=== PATIENT | female | born 1990 | race Caucasian/White ===

== ENCOUNTER 2021-02-04 07:11 | Observation (INO) | payer MEDICAID ==
[2021-02-04] MEDS ORDERED: Misoprostol 50 MCG (1/2 of 100 MCG) Tab VAG ONE ×4 (07:22→11:50)
[2021-02-04] MEDS ORDERED: Aluminum Hydroxide/Magnesium Hydroxide/Simethicone Susp 30 ML Cup PO PRN (08:26)
--- NOTE | 2021-02-04 08:37 | PCM.LDHP ---
L&D History of Present Illness - General Date of Service: 02/04/21 (cerical ripening) Admit Problem/Dx: Patient Status Order with Admit Dx/Problem 02/04/21 08:26 Patient Status [ADT] Routine Admission Diagnosis/Problem Admission Diagnosis/Problem High risk Source of Information: Patient History Limitations: Reports: No Limitations - History of Present Illness Introduction:: This 30 year old G1 who is 40 1/7 weeks presents for cervical ripening due to GDM and unripe cervix Blood sugars well controlled with diet. Last ultrasound showed a 7.5 pound baby at 37 weeks. 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): (NEDA 02/03/21) Endocrine/Metabolic History: Reports: Diabetes, Gestational Social & Family History - Family History Family Medical History: No Pertinent Family History H&P Review of Systems - Review of Systems: Review Of Systems: See Below General: Reports: No Symptoms HEENT: Reports: No Symptoms Pulmonary: Reports: No Symptoms Cardiovascular: Reports: No Symptoms Gastrointestinal: Reports: No Symptoms Genitourinary: Reports: No Symptoms Musculoskeletal: Reports: No Symptoms Skin: Reports: No Symptoms Psychiatric: Reports: No Symptoms Neurological: Reports: No Symptoms Hematologic/Lymphatic: Reports: No Symptoms Immunologic: Reports: No Symptoms L&D Exam - Exam Exam: See Below - Vital Signs Vital Signs: Last Vital Signs Temp 96.4 F L 02/04/21 07:37 Pulse 108 H 02/04/21 07:37 Resp 18 02/04/21 07:37 BP 146/96 H 02/04/21 07:37 Pulse Ox 97 02/04/21 07:37 - OB Specific Contraction Intensity: Mild Movement: Active Heart Tones: Present Heart Rate (FHR) Variability: Moderate (6-25 bmp) Presentation: Vertex Estimated Weight: 8-9 pounds - Mclean Score Mclean Score Cervix Position: Midposition Mclean Score Consistency: Soft Mclean Score Effacement: 31-50% Mclean Score Dilation: Closed Mclean Score Infant's Station: -2 Mclean Score Total: 5 - Exam General: Alert, Oriented HEENT: PERRLA Neck: Supple Lungs: Clear to Auscultation, Normal Respiratory Effort Cardiovascular: Regular Rate, Regular Rhythm GI/Abdominal Exam: Normal Bowel Sounds, Soft Rectal Exam: Normal Exam, Normal Rectal Tone Genitourinary: Normal external exam Back Exam: Normal Inspection Extremities: No Pedal Edema, Normal Capillary Refill Skin: Warm Neurological: Cranial Nerves Intact Psychiatric: Alert, Normal Affect, Normal Mood - Patient Data Lab Results Last 24 hrs: Laboratory Results - last 24 hr 02/04/21 02/04/21 02/04/21 Range/Units 07:15 07:15 07:38 WBC 7.6 (4.5-11.0) K/uL RBC 3.59 (3.30-5.50) M/uL Hgb 10.9 L (12.0-15.0) g/dL Hct 32.6 L (36.0-48.0) % MCV 91 (80-98) fL MCH 30 (27-31) pg MCHC 33 (32-36) % Plt Count 268 (150-400) K/uL Neut % (Auto) 64 (36-66) % Lymph % (Auto) 26 (24-44) % [place] % (Auto) 8 H (2-6) % Eos % (Auto) 2 (2-4) % Baso % (Auto) 0 (0-1) % Urine Color Yellow (YELLOW) Urine Appearance Cloudy A (CLEAR) Urine pH 6.5 (5.0-8.0) Ur Specific [place] 1.025 (1.008-1.030) Urine Protein 30 H (NEGATIVE) mg/dL Urine Glucose (UA) Negative (NEGATIVE) mg/dL Urine Ketones Negative (NEGATIVE) mg/dL Urine Occult Blood Trace-intact H (NEGATIVE) Urine Nitrite Negative (NEGATIVE) Urine Bilirubin Negative (NEGATIVE) Urine Urobilinogen 0.2 (0.2-1.0) EU/dL Ur Leukocyte Esterase Trace H (NEGATIVE) Urine RBC 0-5 (0-5) Urine WBC 0-5 (0-5) Ur Epithelial Cells Moderate Amorphous Sediment Few Urine Bacteria Many Urine Mucus Occasional Urine Other Urine Opiates Screen Negative (NEGATIVE) Ur Oxycodone Screen Negative (NEGATIVE) Urine Methadone Screen Negative (NEGATIVE) Ur Propoxyphene Screen Negative (NEGATIVE) Ur Barbiturates Screen Negative (NEGATIVE) Ur Tricyclics Screen Negative (NEGATIVE) Ur Phencyclidine Scrn Negative (NEGATIVE) Ur Amphetamine Screen Negative (NEGATIVE) U Methamphetamines Scrn Negative (NEGATIVE) Urine MDMA Screen Negative (NEGATIVE) U Benzodiazepines Scrn Negative (NEGATIVE) U Cocaine Metab Screen Negative (NEGATIVE) U Marijuana (THC) Screen Negative (NEGATIVE) Result Diagrams: 02/04/21 07:38 - Problem List (1) Obesity affecting in third trimester, antepartum SNOMED Code(s): 686657136718, 642119352095 ICD Code: O99.213 - OBESITY COMPLICATING , THIRD TRIMESTER Status: Acute Current Visit: Yes (2) Term SNOMED Code(s): 84502337 ICD Code: Z34.90 - ENCNTR FOR SUPRVSN OF NORMAL , UNSP, UNSP TRIMESTER Status: Acute Current Visit: Yes (3) GDM, class A1 SNOMED Code(s): 13671462 ICD Code: O24.410 - GESTATIONAL DIABETES MELLITUS IN , DIET CONTROLLED Status: Acute Current Visit: Yes Problem List Initiated/Reviewed/Updated: Yes Orders Last 24hrs: Active Orders 24 hr Category Date Time Status Patient Status [ADT] Routine ADT 02/04/21 08:26 Ordered Ambulate [RC] PER UNIT ROUTINE Care 02/04/21 08:26 Ordered Antiembolic Devices [RC] .Routine Care 02/04/21 08:28 Ordered Heart Tones [RC] INTERMITTENT Care 02/04/21 08:27 Ordered Notify Provider [RC] PRN Care 02/04/21 08:26 Ordered Up ad Fani [RC] ASDIRECTED Care 02/04/21 08:26 Ordered VTE/DVT Education [RC] Click to Edit Care 02/04/21 08:28 Ordered Vital Signs [RC] PER UNIT ROUTINE Care 02/04/21 08:26 Ordered Consistent Carbohydrate Diet [DIET] Diet 02/04/21 Lunch Ordered Alum Hydrox/Mag Hydrox/Simeth [Mag-Al Plus] Med 02/04/21 08:26 Ordered 30 ml PO Q8H PRN DVT/VTE Prophylaxis Reflex [OM.PC] Routine Oth 02/04/21 08:26 Ordered Nonstress Test [WOMSER] Routine Oth 02/04/21 08:26 Ordered Resuscitation Status Routine Resus Stat 02/04/21 08:26 Ordered Medication Orders Al Hydroxide/Mg Hydroxide (Aluminum Hydroxide/Magnesium Hydroxide/Simethicone Susp 30 Ml Cup) 30 ml PO Q8H PRN PRN Reason: Heartburn Assessment/Plan Comment:: 02/04/21 GDM 40 weeks unripe cervix HGB 10.9, PLT 268 CE FT/50/-2 Miso 50 mcg vaginally, I will reassess at noon. If not elia will do another dose. Possibly home this evening to return on Sunday for Pitocin induction
[2021-02-04] MEDS ORDERED: Misoprostol 25 MCG (1/4 of 100 MCG) Tab VAG ONE (11:50)
--- NOTE | 2021-02-04 12:17 | PCM.PNLD ---
Labor Progress Note - VS & Meds Vital Signs: Last Vital Signs Temp 96.4 F L 02/04/21 07:37 Pulse 88 02/04/21 09:20 Resp 18 02/04/21 09:20 BP 134/88 02/04/21 09:20 Pulse Ox 97 02/04/21 09:20 Active Medications: Current Medications Al Hydroxide/Mg Hydroxide (Aluminum Hydroxide/Magnesium Hydroxide/Simethicone Susp 30 Ml Cup) 30 ml PO Q8H PRN PRN Reason: Heartburn Discontinued Medications Misoprostol (Misoprostol 50 Mcg (1/2 Of 100 Mcg) Tab) 25 mcg VAG ONETIME ONE Stop: 02/04/21 07:23 Last Admin: 02/04/21 09:08 Dose: Not Given Documented by: Misoprostol (Misoprostol 50 Mcg (1/2 Of 100 Mcg) Tab) 50 mcg VAG ONETIME ONE Stop: 02/04/21 07:24 Last Admin: 02/04/21 08:20 Dose: 50 mcg Documented by: Misoprostol (Misoprostol 50 Mcg (1/2 Of 100 Mcg) Tab) 50 mcg VAG ONETIME ONE Stop: 02/04/21 11:51 Last Admin: 02/04/21 12:11 Dose: Not Given Documented by: Misoprostol (Misoprostol 25 Mcg (1/4 Of 100 Mcg) Tab) 25 mcg VAG ONETIME ONE Stop: 02/04/21 11:51 Last Admin: 02/04/21 12:11 Dose: 25 mcg Documented by: - Uterine Contractions Uterine Monitoring Mode: External [place] Contraction Frequency (min): 3.5-4 Contraction Duration (sec): 60-110 Contraction Intensity: Mild Uterine Resting Tone: Soft - Monitoring Monitor Mode: Doppler/Auscultation Heart Rate (FHR) Baseline: 130 Heart Rate (FHR) Variability: Moderate (6-25 bmp) Accelerations: Present, 15x15 Decelerations: None - Vaginal Exam Dilation (cm): 1 Effacement (Percent): 50 Station: -1 Cervical Position: Midposition Sterile Vaginal Exam Performed By: Mindy Chu Vaginal Exam Comment: change from this morning - Labor Progress (Free Text) Labor Progress: contractions not organized yet. mild. duration 30 seconds Baseline fht 130, cat one strip CE /-1 Plan oral miso 25 mcg recheck at 1600 If not in active labor may send home to return when in labor or Sunday for induction with Pitocin
--- NOTE | 2021-02-04 16:25 | PCM.PNLD ---
Labor Progress Note - VS & Meds Vital Signs: Last Vital Signs Temp 97.6 F 02/04/21 12:10 Pulse 84 02/04/21 12:55 Resp 18 02/04/21 12:55 BP 142/89 H 02/04/21 12:55 Pulse Ox 99 02/04/21 12:55 Active Medications: Current Medications Al Hydroxide/Mg Hydroxide (Aluminum Hydroxide/Magnesium Hydroxide/Simethicone Susp 30 Ml Cup) 30 ml PO Q8H PRN PRN Reason: Heartburn Discontinued Medications Misoprostol (Misoprostol 50 Mcg (1/2 Of 100 Mcg) Tab) 25 mcg VAG ONETIME ONE Stop: 02/04/21 07:23 Last Admin: 02/04/21 09:08 Dose: Not Given Documented by: Misoprostol (Misoprostol 50 Mcg (1/2 Of 100 Mcg) Tab) 50 mcg VAG ONETIME ONE Stop: 02/04/21 07:24 Last Admin: 02/04/21 08:20 Dose: 50 mcg Documented by: Misoprostol (Misoprostol 50 Mcg (1/2 Of 100 Mcg) Tab) 50 mcg VAG ONETIME ONE Stop: 02/04/21 11:51 Last Admin: 02/04/21 12:11 Dose: Not Given Documented by: Misoprostol (Misoprostol 25 Mcg (1/4 Of 100 Mcg) Tab) 25 mcg VAG ONETIME ONE Stop: 02/04/21 11:51 Last Admin: 02/04/21 12:11 Dose: 25 mcg Documented by: - Uterine Contractions Uterine Monitoring Mode: External [place] Contraction Frequency (min): 1.5-2 Contraction Duration (sec): 60-70 Contraction Intensity: Mild to Moderate Uterine Resting Tone: Soft - Monitoring Monitor Mode: Doppler/Auscultation Heart Rate (FHR) Baseline: 130 Heart Rate (FHR) Variability: Moderate (6-25 bmp) Accelerations: Present, 15x15 Decelerations: None - Vaginal Exam Dilation (cm): 1 Effacement (Percent): 75 Station: -1 Cervical Position: Midposition Sterile Vaginal Exam Performed By: Mindy Chu Vaginal Exam Comment: no change since noon. - Labor Progress (Free Text) Labor Progress: no change since noon. Cervix is soft and robins score 6. Best to send her home and return on Sunday am for Pitocin induction
== END 2021-02-04 16:25 | disposition home or self-care (01) ==
LOC: JP.OB 07:11
PROVIDERS: ADMIT Nurse Practitioner Family; ATTEND Nurse Practitioner Family
DX: O99.213 Obesity complicating pregnancy, third trimester (principal); O24.410 Gestational diabetes mellitus in pregnancy, diet controlled; Z20.822 Contact with and (suspected) exposure to COVID-19; Z3A.40 40 weeks gestation of pregnancy
CPT/HCPCS: 36415; 80305-QW; 81001; 85025; A9270-GY; G0378; U0002

== ENCOUNTER 2021-02-06 06:59 | Inpatient (IN) | payer MEDICAID ==
[2021-02-06] MEDS ORDERED: Misoprostol 50 MCG (1/2 of 100 MCG) Tab VAG ONE (07:46)
[2021-02-06] MEDS ORDERED: Misoprostol 50 MCG (1/2 of 100 MCG) Tab PO ONE ×2 (08:00→16:18)
--- NOTE | 2021-02-06 08:28 | PCM.LDHP ---
L&D History of Present Illness - General Date of Service: 02/06/21 (induction) Admit Problem/Dx: Admission Diagnosis/Problem Admission Diagnosis/Problem Source of Information: Patient History Limitations: Reports: No Limitations - History of Present Illness Introduction:: This 30 year old G1 who is 40 3/7 with a history of GDM well controlled. Here for induction of labor. She was here Sunday and had cervical ripening. Today cervix is 1+/75/0 this morning anterior and soft Mclean score of 7. Blood pressure has been up this morning, 153/86 currently. Blood sugar this morning 86. Discussion about induction and having a baby today LAb GBS neg ABO O+ HIV neg Rubella I Covid neg Timing/Duration: Reports: minutes: (8) Location, : Reports: Abdomen Severity: Mild Improves with: Reports: None Worsens with: Reports: None - Related Data Allergies/Adverse Reactions: Allergies Allergy/AdvReac Type Severity Reaction Status Date / Time citalopram [From Celexa] Allergy Itching Verified 02/04/21 07:32 Home Medications: Home Meds 148/Iron/Folate 6/Dha [Tendera-Ob Softgel] 1 each PO DAILY 02/04/21 [History] metFORMIN [Glucophage XR] 500 mg PO DAILY 02/04/21 [History] Docusate Sodium [Dulcolax Stool Softener] 1 cap PO DAILY 02/06/21 [History] Iron,Carbonyl/Ascorbic Acid [Fe C Tablet] 1 tab PO DAILY 02/06/21 [History] Past Medical History - Past Health History Medical/Surgical History: Denies 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): (NEDA 02/03/21) Psychiatric History: Reports: Anxiety, Depression, Panic Attack Endocrine/Metabolic History: Reports: Diabetes, Gestational Social & Family History - Family History Family Medical History: No Pertinent Family History - Tobacco Use Tobacco Use Status *Q: Former Tobacco User Used Tobacco, but Quit: Yes Month/Year Tobacco Last Used: 2018 Second Hand Smoke Exposure: No - Caffeine Use Caffeine Use: Reports: Energy Drinks Other Caffeine Use: Bubbl'r - Recreational Drug Use Recreational Drug Use: No H&P Review of Systems - Review of Systems: Review Of Systems: See Below General: Reports: No Symptoms HEENT: Reports: No Symptoms Pulmonary: Reports: No Symptoms Cardiovascular: Reports: Blood Pressure Problem Gastrointestinal: Reports: No Symptoms Genitourinary: Reports: No Symptoms Musculoskeletal: Reports: No Symptoms Skin: Reports: No Symptoms Psychiatric: Reports: No Symptoms Neurological: Reports: No Symptoms Hematologic/Lymphatic: Reports: No Symptoms Immunologic: Reports: No Symptoms L&D Exam - Exam Exam: See Below - Vital Signs Vital Signs: Last Vital Signs Temp 97.0 F 02/06/21 07:30 Pulse 98 02/06/21 07:30 Resp 20 02/06/21 07:30 BP 177/91 H 02/06/21 08:03 Pulse Ox 99 02/06/21 07:30 Weight: 254 lb - OB Specific Contraction Intensity: Mild Movement: Active Heart Tones: Present Heart Tones per Min: 145 Heart Rate (FHR) Variability: Moderate (6-25 bmp) Presentation: Vertex Estimated Weight: 8-9 pounds - Mclean Score Mclean Score Cervix Position: Anterior Mclean Score Consistency: Soft Mclean Score Effacement: 51-70% Mclean Score Dilation: 1-2 cm Mclean Score 's Station: -1 ,0 Mclean Score Total: 9 - Exam General: Alert, Oriented HEENT: PERRLA Lungs: Clear to Auscultation, Normal Respiratory Effort Cardiovascular: Regular Rate, Regular Rhythm GI/Abdominal Exam: Non-Tender Rectal Exam: Normal Exam Genitourinary: Normal external exam, Cervical dilitation, Enlarged uterus Back Exam: Normal Inspection, Full Range of Motion Extremities: No Pedal Edema, Normal Capillary Refill Skin: Warm Neurological: Cranial Nerves Intact, Reflexes Equal Bilateral Psychiatric: Alert, Normal Affect, Normal Mood - Patient Data Lab Results Last 24 hrs: Laboratory Results - last 24 hr 02/06/21 02/06/21 02/06/21 Range/Units 07:17 07:18 07:25 WBC 7.4 (4.5-11.0) K/uL RBC 3.73 (3.30-5.50) M/uL Hgb 11.0 L (12.0-15.0) g/dL Hct 33.5 L (36.0-48.0) % MCV 90 (80-98) fL MCH 30 (27-31) pg MCHC 33 (32-36) % Plt Count 255 (150-400) K/uL Neut % (Auto) 60 (36-66) % Lymph % (Auto) 29 (24-44) % [place] % (Auto) 8 H (2-6) % Eos % (Auto) 2 (2-4) % Baso % (Auto) 0 (0-1) % Urine Color Yellow (YELLOW) Urine Appearance Cloudy A (CLEAR) Urine pH 6.5 (5.0-8.0) Ur Specific [place] 1.025 (1.008-1.030) Urine Protein 30 H (NEGATIVE) mg/dL Urine Glucose (UA) Negative (NEGATIVE) mg/dL Urine Ketones Trace H (NEGATIVE) mg/dL Urine Occult Blood Moderate H (NEGATIVE) Urine Nitrite Negative (NEGATIVE) Urine Bilirubin Negative (NEGATIVE) Urine Urobilinogen 0.2 (0.2-1.0) EU/dL Ur Leukocyte Esterase Small H (NEGATIVE) Urine RBC 20-30 H (0-5) Urine WBC 5-10 H (0-5) Ur Epithelial Cells Many Amorphous Sediment Not seen Urine Bacteria Many Urine Mucus Few Urine Other Urine Opiates Screen Negative (NEGATIVE) Ur Oxycodone Screen Negative (NEGATIVE) Urine Methadone Screen Negative (NEGATIVE) Ur Propoxyphene Screen Negative (NEGATIVE) Ur Barbiturates Screen Negative (NEGATIVE) Ur Tricyclics Screen Negative (NEGATIVE) Ur Phencyclidine Scrn Negative (NEGATIVE) Ur Amphetamine Screen Negative (NEGATIVE) U Methamphetamines Scrn Negative (NEGATIVE) Urine MDMA Screen Negative (NEGATIVE) U Benzodiazepines Scrn Negative (NEGATIVE) U Cocaine Metab Screen Negative (NEGATIVE) U Marijuana (THC) Screen Negative (NEGATIVE) Result Diagrams: 02/06/21 07:25 - Problem List (1) Gestational hypertension SNOMED Code(s): 230307149 ICD Code: O13.9 - GESTATIONAL HTN W/O SIGNIFICANT PROTEINURIA, UNSP TRIMESTER Status: Acute Current Visit: Yes (2) Obesity affecting in third trimester, antepartum SNOMED Code(s): 312949013263, 924320407277 ICD Code: O99.213 - OBESITY COMPLICATING , THIRD TRIMESTER Status: Acute Current Visit: No (3) Term SNOMED Code(s): 50732967 ICD Code: Z34.90 - ENCNTR FOR SUPRVSN OF NORMAL , UNSP, UNSP TRIMESTER Status: Acute Current Visit: No (4) GDM, class A1 SNOMED Code(s): 85076079 ICD Code: O24.410 - GESTATIONAL DIABETES MELLITUS IN , DIET CONTROLLED Status: Acute Current Visit: No Problem List Initiated/Reviewed/Updated: Yes Assessment/Plan Comment:: 02/06/21 30 year old G1 40 3/7 weeks IUP with GDM and gestational hypertension. Plna Miso 50 mcg orally this morning and Pitocin at lunch will work toward delivery today
[2021-02-06] MEDS ORDERED: Lactated Ringers 1,000 ML IV SCH (12:00)
[2021-02-06] MEDS ORDERED: Sodium Chloride 0.9% 10 ML Syringe FLUSH PRN (12:00)
--- NOTE | 2021-02-06 12:32 | PCM.PNLD ---
Labor Progress Note - VS & Meds Vital Signs: Last Vital Signs Temp 97.7 F 02/06/21 11:53 Pulse 90 02/06/21 11:53 Resp 18 02/06/21 11:53 BP 145/88 H 02/06/21 11:53 Pulse Ox 97 02/06/21 11:53 Active Medications: Current Medications Lactated Ringer's (Ringers, Lactated) 1,000 mls @ 125 mls/hr IV ASDIRECTED SHREYAS Last Admin: 02/06/21 12:09 Dose: 125 mls/hr Documented by: Oxytocin/Sodium Chloride (Pitocin In Ns 20 Units/1,000 Ml) 20 unit in 1,000 mls @ 6 mls/hr IV TITRATE SHREYAS; Protocol Last Admin: 02/06/21 12:08 Dose: 2 munits/min, 6 mls/hr Documented by: Sodium Chloride (Sodium Chloride 0.9% 10 Ml Syringe) 10 ml FLUSH ASDIRECTED PRN PRN Reason: Keep Vein Open Discontinued Medications Misoprostol (Misoprostol 50 Mcg (1/2 Of 100 Mcg) Tab) 50 mcg VAG ONETIME ONE Stop: 02/06/21 07:47 Last Admin: 02/06/21 08:57 Dose: Not Given Documented by: Misoprostol (Misoprostol 50 Mcg (1/2 Of 100 Mcg) Tab) 50 mcg PO ONETIME ONE Stop: 02/06/21 08:01 Last Admin: 02/06/21 08:28 Dose: 50 mcg Documented by: - Uterine Contractions Uterine Monitoring Mode: External [place] Contraction Frequency (min): irritability Contraction Duration (sec): 90 Contraction Intensity: Mild Uterine Resting Tone: Soft - Monitoring Monitor Mode: Doppler/Auscultation Heart Rate (FHR) Baseline: 145 Heart Rate (FHR) Variability: Moderate (6-25 bmp) Accelerations: Present, 15x15 Decelerations: None - Vaginal Exam Dilation (cm): 1.5 Effacement (Percent): 75 Station: 0 Cervical Position: Anterior Sterile Vaginal Exam Performed By: Mindy Chu - Labor Progress (Free Text) Labor Progress: noon, 02/06/21 contractions q 5 minutes, mild baseline FHT 145 with good accelerations and variability, cat one strip no check, super comfortable Labs show increase protein/creatinine ratio, protein in urine and B/P 148/88 Plan Pitocin IV started work toward delivery discussed pain management later today
--- NOTE | 2021-02-06 16:14 | PCM.PNLD ---
Labor Progress Note - VS & Meds Vital Signs: Last Vital Signs Temp 97.3 F 02/06/21 15:23 Pulse 83 02/06/21 15:23 Resp 18 02/06/21 15:23 BP 161/94 H 02/06/21 15:56 Pulse Ox 99 02/06/21 15:23 Active Medications: Current Medications Lactated Ringer's (Ringers, Lactated) 1,000 mls @ 125 mls/hr IV ASDIRECTED SHREYAS Last Admin: 02/06/21 12:09 Dose: 125 mls/hr Documented by: Oxytocin/Sodium Chloride (Pitocin In Ns 20 Units/1,000 Ml) 20 unit in 1,000 mls @ 6 mls/hr IV TITRATE SHREYAS; Protocol Last Titration: 02/06/21 16:03 Dose: 0 munits/min, 0 mls/hr Documented by: Sodium Chloride (Sodium Chloride 0.9% 10 Ml Syringe) 10 ml FLUSH ASDIRECTED PRN PRN Reason: Keep Vein Open Discontinued Medications Misoprostol (Misoprostol 50 Mcg (1/2 Of 100 Mcg) Tab) 50 mcg VAG ONETIME ONE Stop: 02/06/21 07:47 Last Admin: 02/06/21 08:57 Dose: Not Given Documented by: Misoprostol (Misoprostol 50 Mcg (1/2 Of 100 Mcg) Tab) 50 mcg PO ONETIME ONE Stop: 02/06/21 08:01 Last Admin: 02/06/21 08:28 Dose: 50 mcg Documented by: - Uterine Contractions Uterine Monitoring Mode: External [place] Contraction Frequency (min): 2-5 Contraction Duration (sec): 30-100 Contraction Intensity: Mild to Moderate Uterine Resting Tone: Soft - Monitoring Monitor Mode: Doppler/Auscultation Heart Rate (FHR) Baseline: 145 Heart Rate (FHR) Variability: Moderate (6-25 bmp) Accelerations: Present, 15x15 Decelerations: None Strip Review: Category I - Vaginal Exam Dilation (cm): 1.5 Effacement (Percent): 75 Station: 0 Cervical Position: Anterior Sterile Vaginal Exam Performed By: Mindy Chu Vaginal Exam Comment: no change from this morning - Labor Progress (Free Text) Labor Progress: 40 3/7 week IUP with GDM and gestational hypertension No cervical change from this morning. Pitocin at 16 mu. Cat one strip Blood pressure higher 168/97, will add beta nikita Plan: Pitocin off times 30 minutes Then 50 mcg of Miso vaginally will reassess at 1999. If no active labor will proceed to c section I have concern about her blood pressure and the baby is large. She agreed with the plan.
[2021-02-06] MEDS: Labetalol 100 MG Tab PO SCH (16:37)
--- NOTE | 2021-02-06 20:34 | PCM.PNLD ---
Labor Progress Note - VS & Meds Vital Signs: Last Vital Signs Temp 97.2 F 02/06/21 17:33 Pulse 81 02/06/21 17:33 Resp 18 02/06/21 17:33 BP 120/79 02/06/21 17:33 Pulse Ox 99 02/06/21 17:33 Active Medications: Current Medications Lactated Ringer's (Ringers, Lactated) 1,000 mls @ 125 mls/hr IV ASDIRECTED SHREYAS Last Admin: 02/06/21 12:09 Dose: 125 mls/hr Documented by: Oxytocin/Sodium Chloride (Pitocin In Ns 20 Units/1,000 Ml) 20 unit in 1,000 mls @ 6 mls/hr IV TITRATE SHREYAS; Protocol Last Titration: 02/06/21 16:03 Dose: 0 munits/min, 0 mls/hr Documented by: Labetalol HCl (Labetalol 100 Mg Tab) 100 mg PO BID SHREYAS Last Admin: 02/06/21 16:37 Dose: 100 mg Documented by: Sodium Chloride (Sodium Chloride 0.9% 10 Ml Syringe) 10 ml FLUSH ASDIRECTED PRN PRN Reason: Keep Vein Open Discontinued Medications Misoprostol (Misoprostol 50 Mcg (1/2 Of 100 Mcg) Tab) 50 mcg VAG ONETIME ONE Stop: 02/06/21 07:47 Last Admin: 02/06/21 08:57 Dose: Not Given Documented by: Misoprostol (Misoprostol 50 Mcg (1/2 Of 100 Mcg) Tab) 50 mcg PO ONETIME ONE Stop: 02/06/21 08:01 Last Admin: 02/06/21 08:28 Dose: 50 mcg Documented by: Misoprostol (Misoprostol 50 Mcg (1/2 Of 100 Mcg) Tab) 50 mcg PO ONETIME ONE Stop: 02/06/21 16:19 Last Admin: 02/06/21 16:35 Dose: 50 mcg Documented by: - Uterine Contractions Uterine Monitoring Mode: External [place] Contraction Frequency (min): 1-3 Contraction Duration (sec): 30-80 Contraction Intensity: Mild to Moderate Uterine Resting Tone: Soft - Monitoring Monitor Mode: Doppler/Auscultation Heart Rate (FHR) Baseline: 145 Heart Rate (FHR) Variability: Moderate (6-25 bmp) Accelerations: Present, 15x15 Decelerations: None Strip Review: Category I - Vaginal Exam Dilation (cm): 1.5 Effacement (Percent): 75 Station: 0 Cervical Position: Anterior Sterile Vaginal Exam Performed By: Mindy Chu Vaginal Exam Comment: no change , has had adequate contractions since 1314 this afternoon - Labor Progress (Free Text) Labor Progress: 30 year old g1 40 3/7 weeks with GDM, hypertension and superimposed preeclampsia . Blood pressure improved with beta nikita. Cervix has remained the same all day. Has had adequate contractions since 1314 this afternoon. She has two doses of Miso and Pitocin drip without labor. She has significant risks with the GDM, large baby, hypertension and preeclampsia as of today. Plan C section this evening
[2021-02-06] MEDS ORDERED: Oxytocin 10 Units/1 ML SDV ONE ×2 (20:46→22:10)
[2021-02-06] MEDS ORDERED: ceFAZolin 1 GM Vial ONE ×2 (22:09→22:10)
[2021-02-06] MEDS ORDERED: ePHEDrine 50 MG/ML SDV ONE (22:11)
[2021-02-06] MEDS ORDERED: Ibuprofen 600 MG Tab PO SCH (23:00)
[2021-02-06] MEDS ORDERED: Sodium Chloride 0.9% 1,000 ML IV SCH (23:00)
[2021-02-06] MEDS ORDERED: Ondansetron 4 MG/2 ML SDV IVPUSH PRN (23:04)
[2021-02-06] MEDS: Morphine 2 MG/ML SYRINGE IVPUSH PRN (23:09)
[2021-02-07] MEDS: Morphine 2 MG/ML SYRINGE IVPUSH PRN (00:02)
[2021-02-07] MEDS: Acetaminophen/HYDROcodone 325-5 MG Tab PO PRN ×5 (00:32→23:24)
[2021-02-07] MEDS: Labetalol 100 MG Tab PO SCH ×3 (01:05→21:23)
[2021-02-07] MEDS: Ibuprofen 600 MG Tab PO SCH ×3 (09:27→23:24)
--- NOTE | 2021-02-07 09:48 | OR ---
DATE OF PROCEDURE: 02/06/2021 SURGEON: Justin Gunter MD PROCEDURE: section with aftercare. GEOSPATIAL INFORMATION SCIENTIST: Mindy Chu CNM. PREOPERATIVE DIAGNOSIS: Preeclampsia. POSTOPERATIVE DIAGNOSIS: Preeclampsia. RISKS: Risks, benefits, alternatives, and limitations including, but not limited to infection, bleeding, injury to baby, bladder, bowel, chronic wounds, chronic pain, infertility, and other risks not listed here were explained to the patient, who wished to proceed. PROCEDURE IN DETAIL: The patient was placed in the supine position. A Pfannenstiel-type incision was made after a spinal, and prep and drape was completed. This was carried down with a 15 blade through the skin. Electrocautery was then used to carry this down to and through the fascia. This was then opened slightly superiorly and inferiorly. The peritoneal cavity was entered bluntly. No abnormalities were noted during the entry. A muscle sparing technique was used to open the rectus muscle. The bladder was identified then deflected inferiorly. Using blunt dissection, the uterus was opened. Clear fluid was noted. The uterus was then opened bilaterally. The baby was delivered without any difficulty. The baby was noted to move all 4 extremities. The cord was then clamped and subsequently cut. The placenta was delivered. The uterus was delivered extracorporeally. No abnormalities were noted. No significant bleeding was noted. The uterus was checked for any retained placental products. None was noted. The uterus was then closed with #1 running Vicryl in three layers in a locked fashion. This was placed back in the abdomen. The abdomen was checked for clots prior and after uterine placement. This was irrigated. Rectus muscles were then reapproximated. The fascia was closed with #1 Vicryl in a running fashion x2. Subcutaneous tissues were closed, and the skin was closed with 4-0 Vicryl. The patient tolerated the procedure well. Justin Gunter MD /[id number]
--- NOTE | 2021-02-07 10:32 | PN ---
DATE OF SERVICE: 02/07/2021 SUBJECTIVE: The patient is doing well. Pain is controlled. No nausea, vomiting, shortness of breath, or chest pain. OBJECTIVE: VITAL SIGNS: Stable. CARDIOVASCULAR: Regular rhythm and rate. RESPIRATORY: Lungs clear to auscultation bilaterally. SKIN: Incision healing well. ASSESSMENT: Status post . PLAN: Saline lock today. Mukherjee out. Advance diet. Increase activity. Ibuprofen for pain with [place] as the back up. Anticipate discharge in the next 48 hours. Justin Gunter MD /[id number]
[2021-02-08] MEDS: Acetaminophen/HYDROcodone 325-5 MG Tab PO PRN ×2 (03:37→07:50)
[2021-02-08] MEDS: Ibuprofen 600 MG Tab PO SCH (07:49)
[2021-02-08] MEDS: Labetalol 100 MG Tab PO SCH ×2 (07:51→08:20)
--- NOTE | 2021-02-08 09:19 | PN ---
DATE OF SERVICE: 02/08/2021 SUBJECTIVE: The patient did very well overnight. No nausea, vomiting, shortness of breath, or concern. Tolerating diet. OBJECTIVE: VITAL SIGNS: Stable. She is afebrile. SKIN: Incision healing well. ASSESSMENT: Status post . PLAN: The patient will probably be discharged per network designer recommendations today. Surgical Services has no specific concerns. Please see discharge summary for further details. Justin Gunter MD /[id number]
--- NOTE | 2021-02-08 12:11 | DISCH ---
DISCHARGE SUMMARY: section. SUMMARY OF HOSPITAL COURSE: This is a pleasant 30-year-old female who did very well postop . Prior to discharge, pain is well controlled. No nausea, vomiting, shortness of breath, or chest pain. Incision healing well. FOLLOWUP: With Surgery in 7 to 14 days. ACTIVITY: No lifting greater than 30 pounds x30 days. DISCHARGE MEDICATIONS: Please see JAN. /[id number]
== END 2021-02-08 10:50 | disposition home or self-care (01) | DRG 788 ==
LOC: JP.OBCHECK 06:59 → JP.OB 08:20 → OBSVTOIN 21:55 → JP.MS 21:56
PROVIDERS: ADMIT Surgery; ATTEND Surgery
PROC: 10D00Z1 Extraction of Products of Conception, Low, Open Approach (ICD-10-PCS; principal; 2021-02-06)
DX: O24.420 Gestational diabetes mellitus in childbirth, diet controlled (principal); Z37.0 Single live birth; O14.94 Unspecified pre-eclampsia, complicating childbirth; O99.214 Obesity complicating childbirth; E66.9 Obesity, unspecified; Z3A.40 40 weeks gestation of pregnancy; Z87.891 Personal history of nicotine dependence
CPT/HCPCS: 36415; 80048; 80053; 80305-QW; 81001; 82570; 83615; 83735; 84156; 84550; 85025; 85027; 86850; 86900; 86901; A9270-GY; J0690; J2270; J2590; J7030; J7120

== ENCOUNTER 2024-11-14 05:00 | Emergency (ER) | payer MEDICAID ==
[2024-11-14 05:41] LABS: BASOPHILS ABSOLUTE AUTO 0.04 K/uL (0.00-0.10); BASOPHILS PERCENT AUTO 0.5 % (0.1-1.3); EOSINOPHILS ABSOLUTE AUTO 0.33 K/uL (0.00-0.40); EOSINOPHILS PERCENT AUTO 3.9 % (0.0-5.4); HEMATOCRIT 37.1 % (34.3-46.0); HEMOGLOBIN 12.6 g/dL (11.2-15.5); IMMATURE GRAN PERCENT AUTO 0.2 % (0.0-0.7); LYMPHOCYTES ABSOLUTE AUTO 2.56 K/uL (0.8-3.3); LYMPHOCYTES PERCENT AUTO 29.9 % (11.4-47.7); MEAN CORPUSCULAR HEMOGLOBIN 30.7 pg (31.6-35.5); MEAN CORPUSCULAR VOLUME 90.3 fL (81.4-99.0); MONOCYTES ABSOLUTE AUTO 0.48 K/uL (0.20-0.90); MONOCYTES PERCENT AUTO 5.6 % (3.3-12.6); NEUTROPHILS ABSOLUTE AUTO 5.14 K/uL (1.0-7.6); NEUTROPHILS PERCENT AUTO 59.9 % (40.0-78.1); PLATELET COUNT,PLT 256 K/uL (130-375); RED BLOOD CELL COUNT 4.11 M/uL (3.77-5.24); WHITE BLOOD CELL COUNT,WBC 8.6 K/uL (3.2-11.0)
[2024-11-14] MEDS: Ondansetron 4 MG/2 ML SDV IVPUSH ONE (05:41)
[2024-11-14] MEDS: HYDROmorphone 0.5 MG/0.5 ML Syringe IVPUSH ONE (05:45)
[2024-11-14] MEDS: Sodium Chloride 0.9% 1,000 ML IV SCH ×2 (05:47→07:02)
[2024-11-14 05:55] LABS: IMMATURE GRAN ABSOLUTE AUTO 0.02 K/uL (0.00-0.23)
[2024-11-14 06:03] LABS: A/G RATIO 1.1 (1.2-2.2); ALANINE AMINOTRANSFERASE,ALT 22 U/L (12-78); ALBUMIN 3.9 g/dL (3.4-5.0); ALKALINE PHOSPHATASE 66 U/L (46-116); ANION GAP 8.1 mmol/L (5.0-14.0); ASPARTATE AMNIOTRANSFERASE,AST 19 U/L (15-37); BILIRUBIN TOTAL 0.3 mg/dL (0.2-1.0); BLOOD UREA NITROGEN,BUN 22 mg/dL (7-18); CALCIUM 8.9 mg/dL (8.5-10.1); CARBON DIOXIDE,CO2 29 mmol/L (21-32); CHLORIDE,CL 105 mmol/L (100-108); EST CRCL DRUG DOSING (CG) 64.33 mL/min; ESTIMATED GFR 75 mL/min (>60); GLUCOSE RANDOM 127 mg/dL (74-106); POTASSIUM,K 4.2 mmol/L (3.6-5.2); PROTEIN TOTAL,TP 7.5 g/dL (6.4-8.2); SODIUM,NA 142 mmol/L (140-148)
[2024-11-14 06:07] LABS: C-REACTIVE PROTEIN < 0.50 mg/dL (<0.50)
[2024-11-14 06:23] LABS: APPEARANCE,URINE CLEAR (CLEAR); BILIRUBIN,URINE NEGATIVE (NEGATIVE); COLOR,URINE YELLOW (YELLOW); GLUCOSE,URINE NEGATIVE (NEGATIVE); KETONES,URINE NEGATIVE (NEGATIVE); LEUKOCYTE ESTERASE,URINE NEGATIVE (NEGATIVE); NITRITE,URINE NEGATIVE (NEGATIVE); OCCULT BLOOD,URINE MODERATE (NEGATIVE); PH,URINE 5.5 (5.0-8.0); PROTEIN,URINE 100 mg/dL (NEGATIVE); UROBILINOGEN,URINE 0.2 EU/dL (0.2-1.0)
[2024-11-14 06:32] LABS: BACTERIA,URINE FEW; EPITHELIAL CELLS,URINE MODERATE; MUCUS,URINE NOT SEEN; WBC,URINE 0-5 (0-5)
[2024-11-14 06:33] LABS: AMORPHOUS SEDIMENT,URINE NOT SEEN
[2024-11-14] MEDS: Ketorolac 30 MG/ML SDV IVPUSH ONE (06:35)
[2024-11-14] MEDS: Ketorolac 30 MG/ML SDV ONE (06:42)
[2024-11-14] MEDS: Tamsulosin 0.4 MG Cap.ER PO ONE (07:20)
== END 2024-11-14 08:33 | disposition home or self-care (01) ==
LOC: JP.ED 05:00
DX: N20.0 Calculus of kidney (principal); Z88.8 Allergy status to other drugs, medicaments and biological substances; Z79.84 Long term (current) use of oral hypoglycemic drugs; Z79.899 Other long term (current) drug therapy
CPT/HCPCS: 36415; 74176; 80053; 81001; 85025; 86140; 96361; 96374; 96375; 99284; A9270; J1171; J1885; J2405; J7030